=== PATIENT | female | born 1975 | race Caucasian/White ===

== ENCOUNTER 2016-12-15 23:19 | Emergency (ER) | payer OTHER ==
[2016-12-16] MEDS ORDERED: HYDROCODONE/APAP 5/325MG TABLET. PO ONE (00:45)
[2016-12-16] MEDS ORDERED: CYCLOBENZAPRINE 10 MG TABLET. PO ONE (00:45)
--- NOTE | 2016-12-16 01:04 | PHYS DOC ---
Past Medical History Past Medical History: Other Additional Past Medical Histor: RA Past Surgical History: , Hysterectomy Alcohol Use: None Drug Use: None Adult General Chief Complaint Chief Complaint: BACK INJURY HPI HPI Patient is a 41 year old patient with history of breast months presents today with pain on the left lateral ribs radiating to the left upper back that began today after seeing a chiropractor. Patient states the pain is worse when she moves side to side of stretches. Patient states she would like a chest x-ray to make sure they did not break her bones. Denies any chest pain or shortness of breath. Review of Systems Review of Systems Constitutional: Denies fever or chills [] Eyes: Denies change in visual acuity, redness, or eye pain [] HENT: Denies nasal congestion or sore throat [] Respiratory: left lateral ribs radiating to the left upper back Cardiovascular: No additional information not addressed in HPI [] GI: Denies abdominal pain, nausea, vomiting, bloody stools or diarrhea [] : Denies dysuria or hematuria [] Musculoskeletal: Denies back pain or joint pain [] Integument: Denies rash or skin lesions [] Neurologic: Denies headache, focal weakness or sensory changes [] Endocrine: Denies polyuria or polydipsia [] Current Medications Current Medications Current Medications Medications (Trade) Dose Ordered Sig/Anum Start Time Stop Time Status Last Admin Dose Admin Acetaminophen/ Hydrocodone Bitart (Lortab 5/325) 1 tab 1X ONCE 12/16/16 00:45 12/16/16 00:46 DC 12/16/16 00:40 1 TAB Cyclobenzaprine HCl (Flexeril) 10 mg 1X ONCE 12/16/16 00:45 12/16/16 00:46 DC 12/16/16 00:40 10 MG Allergies Allergies Allergies Coded Allergies Type Severity Reaction Last Updated Verified No Known Drug Allergies 12/15/16 No Physical Exam Physical Exam Constitutional: Well developed, well nourished, no acute distress, non-toxic appearance. [] HENT: Normocephalic, atraumatic, bilateral external ears normal, oropharynx moist, no oral exudates, nose normal. [] Eyes: PERRLA, EOMI, conjunctiva normal, no discharge. [] Neck: Normal range of motion, no tenderness, supple, no stridor. [] Cardiovascular:Heart rate regular rhythm, no murmur [] Lungs & Thorax: Bilateral breath sounds clear to auscultation diffuse tenderness to the left lateral ribs approximately ribs 5,6 and 7 Abdomen: Bowel sounds normal, soft, no tenderness, no masses, no pulsatile masses. [] Skin: Warm, dry, no erythema, no rash. [] Back: No tenderness, no CVA tenderness. [] Extremities: No tenderness, no cyanosis, no clubbing, ROM intact, no edema. [] Neurologic: Alert and oriented X 3, normal motor function, normal sensory function, no focal deficits noted. [] Psychologic: Affect normal, judgement normal, mood normal. [] Current Patient Data Vital Signs Vital Signs Date Time Temp Pulse Resp B/P Pulse Ox O2 Delivery O2 Flow Rate FiO2 12/16/16 00:20 164/84 12/15/16 23:51 98.9 76 22 99 Room Air 98.9 EKG EKG [] Radiology/Procedures Radiology/Procedures [] Course & Med Decision Making Course & Med Decision Making Pertinent Labs and Imaging studies reviewed. (See chart for details) Patient is in the ED with musculoskeletal pain to the left lateral ribs after having been seen by a chiropractor today, she requested chest x-ray to make sure they did not break her ribs. Her chest x-ray was interpreted by Dr. Alexander was negative for any acute findings. She was discharged with some muscle relaxers, she is already on meloxicam. I gave her 10 tablets of Cobb as well and instructed her to follow-up with her PCP. She states she has an appointment on Sunday. Corine Disclaimer Corine Disclaimer This electronic medical record was generated, in whole or in part, using a voice recognition dictation system. Departure Departure Impression: Primary Impression: Musculoskeletal back pain Disposition: HOME, SELF-CARE Condition: STABLE Referrals: UNKNOWN PCP NAME (PCP) Follow-up with your doctor on Sunday Patient Instructions: Musculoskeletal Pain Additional Instructions: You were seen for musculoskeletal pain. Take the prescribed medicines as ordered. You can apply heat or ice to the affected regions. Follow-up with your doctor on Sunday, come back to the ED symptoms worsen. Scripts Hydrocodone/Apap 5-325 (Cobb 5-325 Tablet)1 Each Tablet1-2 Tab PO Q4-6HRS #10 TAB Prov:MUTUNGA,KRISHAN TECHNICAL PROFESSIONAL 12/16/16 Cyclobenzaprine Hcl 10 Mg Tablet1 Tab PO TID #30 TAB Prov:KRISHAN MONTES APRN 12/16/16 KRISHAN MONTES APRN Dec 16, 2016 01:04
[2016-12-16 01:11] VITALS: BP 158/83
[2016-12-16] MEDS ORDERED: CYCL10TA2 PO (01:11)
[2016-12-16] MEDS ORDERED: HYDR-971 PO (01:11)
--- NOTE | 2016-12-16 08:00 | RAD ---
Indication left-sided chest pain. PA and lateral views of the chest were obtained. No similar imaging is available. The heart and pulmonary vessels appear normal. The mediastinum has a normal appearance. The lungs are clear. There is no pleural fluid or pneumothorax. Visualized bony structures appear grossly intact. IMPRESSION: Normal study
== END 2016-12-16 01:12 | disposition home or self-care (01) ==
LOC: ER 23:19
DX: M54.6 Pain in thoracic spine (principal); R07.81 Pleurodynia; Z90.710 Acquired absence of both cervix and uterus
CPT/HCPCS: 71020; 99284-25

== ENCOUNTER → 2016-12-21 | Outpatient (CLI) | payer OTHER ==
[2016-12-16 01:11] VITALS: BP 158/83
[~2016-12-21] MED LIST: CYCL10TA2 PO; HYDR-971 PO
--- NOTE | 2016-12-21 11:56 | RAD ---
DATE: 12/21/2016 EXAM: DIGITAL DIAGNOSTIC BILATERAL HISTORY: Left breast lump with pain COMPARISON: 02/25/2014 This study was interpreted with the benefit of Computerized Aided Detection (CAD). FINDINGS: There are scattered fibroglandular densities in the breasts. No new or enlarging breast densities are seen. Small lymph node type densities are present in the axillary regions. No mass is identified to correspond to the area of palpable concern laterally on the left. A few scattered benign type calcifications are noted. No suspicious microcalcifications are seen. Left breast ultrasound, 12/21/2016: A targeted ultrasound exam of the left breast was performed centered at the 2:00-3:00 location in the area of reported pain and possible lump. Heterogeneous fibroglandular shadows are present. No cystic or solid breast mass is seen. IMPRESSION: 1. Stable mammograms without evidence of malignancy. 2. The targeted left breast ultrasound reveals no abnormality. 3. Clinical surveillance of the area of palpable concern is suggested. BI-RADS CATEGORY: 2 BENIGN FINDING(S) RECOMMENDED FOLLOW-UP: 12M 12 MONTH FOLLOW-UP PQRS compliance statement: Patient information was entered into a reminder system with a target due date for the next mammogram. Mammography is a sensitive method for finding small breast cancers, but it does not detect them all and is not a substitute for careful clinical examination. A negative mammogram does not negate a clinically suspicious finding and should not result in delay in biopsying a clinically suspicious abnormality. "Our facility is accredited by the [employer] Mammography Program."
== END | disposition home or self-care (01) ==
LOC: KCIC MAMMO 09:57
PROVIDERS: ATTEND Obstetrics & Gynecology
DX: N64.4 Mastodynia (principal)
CPT/HCPCS: 76641; G0204; 77066

== ENCOUNTER 2020-12-27 14:19 | Emergency (ER) | payer MEDICAID, OTHER ==
[~2020-12-27] VITALS: Ht 170.2 cm; Wt 93.0 kg
[~2020-12-27 14:19] MED LIST changes: +HYDR-3164 PO; -HYDR-971 PO
[2020-12-27 14:31] VITALS: BP 165/96
[2020-12-27] MEDS ORDERED: OXYMETAZOLINE 0.05% NASAL SPRAY 30ML BOTTLE. NS ONE (14:45)
--- NOTE | 2020-12-27 14:50 | PHYS DOC ---
Past Medical History Past Medical History: Other Additional Past Medical Histor: RA, BLEEDING ULCER Past Surgical History: , Hysterectomy Smoking Status: Current Every Day Smoker Alcohol Use: None Drug Use: None General Adult EDM: Chief Complaint: NOSEBLEED HPI: HPI: Patient is a 45 year old presented with nose bleeding started today spontaneously, no injury, recalled recent NASAL SWAB FOR COVID-19 TEST a week ago. She is not on any blood thinner. no headache, no chest pain, no cough, no sorethroat. Review of Systems: Review of Systems: Constitutional: Denies fever or chills. [] Eyes: Denies change in visual acuity. [] HENT: positive for left side nose bleeding. Respiratory: Denies cough or shortness of breath. [] Cardiovascular: Denies chest pain or edema. [] GI: Denies abdominal pain, nausea, vomiting, bloody stools or diarrhea. [] : Denies dysuria. [] Musculoskeletal: Denies back pain or joint pain. [] Integument: Denies rash. [] Neurologic: Denies headache, focal weakness or sensory changes. [] Endocrine: Denies polyuria or polydipsia. [] Lymphatic: Denies swollen glands. [] Psychiatric: Denies depression or anxiety. [] Heart Score: C/O Chest Pain: N/A Risk Factors: Risk Factors: DM, Current or recent (<one month) smoker, HTN, HLP, family history of CAD, obesity. Risk Scores: Score 0 - 3: 2.5% MACE over next 6 weeks - Discharge Home Score 4 - 6: 20.3% MACE over next 6 weeks - Admit for Clinical Observation Score 7 - 10: 72.7% MACE over next 6 weeks - Early Invasive Strategies Current Medications: Current Medications Medications (Trade) Dose Ordered Sig/Anum Start Time Stop Time Status Last Admin Dose Admin Oxymetazoline HCl (Afrin) 2 spray 1X ONCE 12/27/20 14:45 12/27/20 14:46 DC 12/27/20 14:40 2 SPRAY Allergies: Allergies: Allergies Coded Allergies Type Severity Reaction Last Updated Verified No Known Drug Allergies 12/15/16 No Physical Exam: PE: Constitutional: Well developed, well nourished, no acute distress, non-toxic appearance. [] HENT: Normocephalic, atraumatic, bilateral external ears normal, oropharynx moist, no oral exudates,left nasal septum with trace of bleeding, due to superficial skin irritation. Eyes: PERRLA, EOMI, conjunctiva normal, no discharge. [] Neck: Normal range of motion, no tenderness, supple, no stridor. [] Cardiovascular:Heart rate regular rhythm, no murmur [] Lungs & Thorax: Bilateral breath sounds clear to auscultation [] Extremities: No tenderness, no cyanosis, no clubbing, ROM intact, no edema. [] Neurologic: Alert and oriented X 3, normal motor function, normal sensory function, no focal deficits noted. [] Psychologic: Affect normal, judgement normal, mood normal. [] Current Patient Data: Vital Signs: Vital Signs Date Time Temp Pulse Resp B/P (MAP) Pulse Ox O2 Delivery O2 Flow Rate FiO2 12/27/20 14:31 98.1 84 16 165/96 (119) 96 Room Air 98.1 EKG: EKG: [] Radiology/Procedures: Radiology/Procedures: [] Course & Med Decision Making: Course & Med Decision Making Pertinent Labs and Imaging studies reviewed. (See chart for details) Patient presented with left side nose bleeding, maybe due to consequence of humidity and recent COVID-19 SWAP. The bleeding was stopped with nasal afrin spray. Patient was discharged home to follow up with ENT doc this week. She is not on any blood thinner. Dragon Disclaimer: Dragon Disclaimer: This electronic medical record was generated, in whole or in part, using a voice recognition dictation system. Departure Departure Impression: Primary Impression: Left-sided nosebleed Disposition: 01 DC HOME SELF CARE/HOMELESS Condition: IMPROVED Referrals: NATHAN ONEILL MD (PCP) MARIVEL FRIEND MD follow up with this ENT doctor for reevaluation Patient Instructions: Nosebleed Additional Instructions: Thank you for visiting our Emergency Department. We appreciate you trusting us with your care. If any additional problems come up don't hesitate to return to visit us. Please follow up with your primary care provider so they can plan additional care if needed and know about the problem that you had. If symptoms worsen come back to the Emergency Department. Any concerning symptoms that start such as chest pain, shortness of air, weakness or numbness on one side of the body, running high fevers or any other concerning symptoms return to the ER. CHRISTIANO HANSEN DO Dec 27, 2020 14:50
== END 2020-12-27 15:00 | disposition home or self-care (01) ==
LOC: ER 14:19
DX: R04.0 Epistaxis (principal); F17.200 Nicotine dependence, unspecified, uncomplicated; Z90.710 Acquired absence of both cervix and uterus; Z98.890 Other specified postprocedural states
CPT/HCPCS: 99282

== ENCOUNTER 2021-09-03 20:10 | Emergency (ER) | payer MEDICAID ==
[~2021-09-03] VITALS: Ht 170.2 cm; Wt 110.0 kg
[~2021-09-03 20:10] MED LIST changes: +CYCL10TA19 PO; -CYCL10TA2 PO
[2021-09-03] MEDS ORDERED: HYDROcodone/APAP 5/325MG 1 TAB TABLET PO ONE (21:00)
--- NOTE | 2021-09-03 21:14 | PHYS DOC ---
Past Medical History Past Medical History: Other Additional Past Medical Histor: RA, BLEEDING ULCER Past Surgical History: , Hysterectomy Smoking Status: Current Every Day Smoker Alcohol Use: None Drug Use: None General Adult EDM: Chief Complaint: FOOT INJURY PAIN HPI: HPI: Patient is a 46 year old female who presents with was at the [employer] and went into the restroom and when she went to put her foot down she heard a loud pop in had intense sharp pain in the right dorsal lateral side of the foot. States she could not put any weight on it. She rated her pain a 7 out of 10. She has a history of RA, bleeding ulcers, , hysterectomy and smoking. Review of Systems: Review of Systems: Constitutional: Denies fever or chills. [] Eyes: Denies change in visual acuity. [] HENT: Denies nasal congestion or sore throat. [] Respiratory: Denies cough or shortness of breath. [] Cardiovascular: Denies chest pain or + right foot edema. [] GI: Denies abdominal pain, nausea, vomiting, bloody stools or diarrhea. [] : Denies dysuria. [] Musculoskeletal: Denies back pain or + right foot joint pain. [] Integument: Denies rash. + Right lateral dorsal foot bruising [] Neurologic: Denies headache, focal weakness or sensory changes. [] Endocrine: Denies polyuria or polydipsia. [] Lymphatic: Denies swollen glands. [] Psychiatric: Denies depression or anxiety. [] Heart Score: C/O Chest Pain: No Current Medications: Current Medications Medications (Trade) Dose Ordered Sig/[facility] Start Time Stop Time Status Last Admin Dose Admin Acetaminophen/ Hydrocodone Bitart (Lortab 5/325) 1 tab 1X ONCE 09/03/21 21:00 09/03/21 21:01 DC 09/03/21 20:55 1 TAB Allergies: Allergies: Allergies Coded Allergies Type Severity Reaction Last Updated Verified No Known Drug Allergies 12/15/16 No Physical Exam: PE: Constitutional: Well developed, well nourished, no acute distress, non-toxic appearance. [] HENT: Normocephalic, atraumatic, bilateral external ears normal, oropharynx moist, no oral exudates, nose normal. [] Eyes: PERRLA, EOMI, conjunctiva normal, no discharge. [] Neck: Normal range of motion, no tenderness, supple, no stridor. [] Cardiovascular:Heart rate regular rhythm, no murmur [] Lungs & Thorax: Bilateral breath sounds clear to auscultation [] Abdomen: Bowel sounds normal, soft, no tenderness, no masses, no pulsatile masses. [] Skin: Warm, dry, no erythema, no rash. Right dorsal lateral foot bruising [] Back: No tenderness, no CVA tenderness. [] Extremities: Right dorsal lateral tenderness, no cyanosis, no clubbing, ROM intact, 1+ edema. [] Neurologic: Alert and oriented X 3, normal motor function, normal sensory function, no focal deficits noted. [] Psychologic: Affect normal, judgement normal, mood normal. [] Current Patient Data: Vital Signs: Vital Signs Date Time Temp Pulse Resp B/P (MAP) Pulse Ox O2 Delivery O2 Flow Rate FiO2 09/03/21 20:55 12 98 Room Air 09/03/21 20:20 97.6 92 158/95 (116) 97.6 EKG: EKG: [] Radiology/Procedures: Radiology/Procedures: [] Impression: [facility] [address] [place] [address] IMAGING REPORT Signed PATIENT: PADMINI SCHAEFER ACCOUNT: [id number] : 1975 LOCATION: ER AGE: 46 SEX: F EXAM STATUS: REG ER ORD. PHYSICIAN: BERNA AMAYA APRN REASON: PAIN AFTER TWISTING INJURY PROCEDURE: ANKLE RIGHT 3V XR FOOT_RIGHT 3 VIEWS, XR EXAM OF ANKLE_RIGHT 3VIEWS 09/03/2021 9:05 PM INDICATION: Pain after twisting injury COMPARISON: None available. TECHNIQUE: 3 views the right foot 3 views the right ankle are provided. FINDINGS/ IMPRESSION: There is no acute fracture or dislocation. Joint spaces are maintained. Bone mineralization is within normal limits. Mild lateral ankle soft tissue swelling is noted. There is no soft tissue gas or osseous erosion. No radiopaque foreign body. Plantar calcaneal enthesophyte. Electronically signed by: Zachery Lomax MD (09/03/2021 9:55 PM) [facility] DICTATED and SIGNED BY: ZACHERY LOMAX MD DATE: 09/03/21 [id number] 0 Course & Med Decision Making: Course & Med Decision Making Pertinent Labs and Imaging studies reviewed. (See chart for details) See HPI. Alert and oriented x4. Ambulatory steady gait. Speaks in full clear sentences. Skin pink warm and dry. Patient right foot lateral 1+ swelling, tenderness and bruising. She can wiggle her toes. Unable to bear weight due to pain. No joint deformity. Full range of motion at the ankle. Cap refill less than 2 seconds. Pedal pulse strong are present. Patient placed in a walking shoe. She is also given crutches. Follow-up with orthopedics or her primary care physician. [] Corine Disclaimer: Corine Disclaimer: This electronic medical record was generated, in whole or in part, using a voice recognition dictation system. Departure Departure Impression: Primary Impression: Foot pain, right Disposition: 01 HOME / SELF CARE / HOMELESS Condition: STABLE Referrals: WENID ORLANDO BC (PCP) ISACC LY DPDemarcus Patient Instructions: Foot Sprain Additional Instructions: Follow-up with your primary care physician or the flume tender and I referred you to. Take ibuprofen for your pain. Use ice and elevation. BERNA AMAYA APRN Sep 03, 2021 21:14
--- NOTE | 2021-09-03 21:57 | RAD ---
XR FOOT_RIGHT 3 VIEWS, XR EXAM OF ANKLE_RIGHT 3VIEWS 09/03/2021 9:05 PM INDICATION: Pain after twisting injury COMPARISON: None available. TECHNIQUE: 3 views the right foot 3 views the right ankle are provided. FINDINGS/ IMPRESSION: There is no acute fracture or dislocation. Joint spaces are maintained. Bone mineralization is within normal limits. Mild lateral ankle soft tissue swelling is noted. There is no soft tissue gas or osse ous erosion. No radiopaque foreign body. Plantar calcaneal enthesophyte. Electronically signed by: Denise Romero MD (09/03/2021 9:55 PM) BRENNA
== END 2021-09-03 22:30 | disposition home or self-care (01) ==
LOC: ER 20:10
DX: S90.31XA Contusion of right foot, initial encounter (principal); F17.200 Nicotine dependence, unspecified, uncomplicated; X50.9XXA Other and unspecified overexertion or strenuous movements or postures, initial encounter; Y93.89 Activity, other specified; Y92.89 Other specified places as the place of occurrence of the external cause; Y99.8 Other external cause status
CPT/HCPCS: 73610; 73630; 99284